=== PATIENT | male | born 1980 ===

== ENCOUNTER 2019-07-14 20:43 | Emergency (ER) | payer SELFPAY ==
[~2019-07-14] VITALS: Ht 198.1 cm; Wt 131.5 kg
[2019-07-14 20:49] VITALS: BP 139/79; Ht 198.1 cm; Wt 131.5 kg
== END 2019-07-14 20:53 | disposition home or self-care (01) ==
LOC: ED 20:43
DX: J20.9 Acute bronchitis, unspecified (principal)